=== PATIENT | male | born 1980 | race Caucasian/White ===

== ENCOUNTER 2019-04-11 09:03 | Emergency (ER) | payer MEDICAID ==
[~2019-04-11] VITALS: Ht 177.8 cm; Wt 67.2 kg
[~2019-04-11 09:03] MED LIST: DIVA-76 PO; DIVA500T39 PO
[2019-04-11 09:19] VITALS: BP 108/71
[2019-04-11] MEDS ORDERED: buprenorphine/naloxone 8mg/2mg SL tablet SL STA (09:45)
--- NOTE | 2019-04-11 10:07 | NUR ---
Patient here for medical clearance [facility] go to [facility].
== END 2019-04-11 10:10 | disposition home or self-care (01) ==
LOC: ER 09:05
DX: F11.23 Opioid dependence with withdrawal (principal); F17.200 Nicotine dependence, unspecified, uncomplicated; F15.90 Other stimulant use, unspecified, uncomplicated; F29 Unspecified psychosis not due to a substance or known physiological condition; Z86.19 Personal history of other infectious and parasitic diseases; Z79.899 Other long term (current) drug therapy; Z98.890 Other specified postprocedural states
CPT/HCPCS: 99282

== ENCOUNTER 2019-04-16 00:53 | Emergency (ER) | payer MEDICAID ==
[~2019-04-16] VITALS: Ht 177.8 cm; Wt 81.8 kg
[2019-04-16] MEDS ORDERED: chlordiazePOXIDE 25mg capsule PO ONE (03:35)
[2019-04-16] MEDS ORDERED: PROM12.512 PO (03:43)
[2019-04-16 03:58] VITALS: BP 125/65
== END 2019-04-16 04:01 | disposition home or self-care (01) ==
LOC: ER 00:53
DX: F10.10 Alcohol abuse, uncomplicated (principal); F15.90 Other stimulant use, unspecified, uncomplicated; F11.90 Opioid use, unspecified, uncomplicated; F29 Unspecified psychosis not due to a substance or known physiological condition; Z86.19 Personal history of other infectious and parasitic diseases; Z98.890 Other specified postprocedural states; Z79.899 Other long term (current) drug therapy; Y90.9 Presence of alcohol in blood, level not specified
CPT/HCPCS: 99283

== ENCOUNTER 2021-09-15 02:51 | Emergency (ER) | payer MEDICAID ==
[~2021-09-15] VITALS: Ht 177.8 cm; Wt 86.4 kg
[~2021-09-15 02:51] MED LIST changes: +PROM12.512 PO
--- NOTE | 2021-09-15 02:52 | NUR ---
When patient was asked to come into triage room patient ignored nurse and then said, "hold please", and then continued to disregard the nurse. Will attempt triage again later.
[2021-09-15 03:46] VITALS: BP 147/89
== END 2021-09-15 04:43 | disposition left against medical advice (07) ==
LOC: ER 02:51
DX: K75.9 Inflammatory liver disease, unspecified (principal); Z53.21 Procedure and treatment not carried out due to patient leaving prior to being seen by health care provider

== ENCOUNTER 2021-11-21 10:19 | Emergency (ER) | payer MEDICAID ==
[~2021-11-21] VITALS: Ht 177.8 cm; Wt 83.2 kg
[2021-11-21 10:29] VITALS: BP 128/89
[2021-11-21] MEDS ORDERED: BUPR1FIL3 SL (20:10)
== END 2021-11-21 15:08 | disposition left against medical advice (07) ==
LOC: ER 10:20
DX: R44.0 Auditory hallucinations (principal); Z53.21 Procedure and treatment not carried out due to patient leaving prior to being seen by health care provider

== ENCOUNTER 2021-11-21 18:26 | Inpatient (IN) | payer MEDICAID ==
[~2021-11-21] VITALS: Ht 177.8 cm; Wt 84.9 kg
--- NOTE | 2021-11-21 20:06 | NUR ---
pt. denies suicidal ideation when asked. pt. is making gestures and says there are a lot of people in the room. pt. believes that he has rabies do to eating a make a wish flower.
--- NOTE | 2021-11-21 20:08 | NUR ---
pt. states he has been off of his meds.
[2021-11-21] MEDS ORDERED: BUPR1FIL3 SL (20:10)
--- NOTE | 2021-11-21 22:13 | NUR ---
pt. is still having auditory hallucinations. i asked pt. if the voices are telling him to harm himself or others and he said that it's hard to explain and that he feels frantic.
[2021-11-21 22:59] LABS: HEMOGLOBIN 15.5 g/dl (14.0-17.9)
[2021-11-21 23:01] LABS: BASOPHILS % (AUTO) 0.4 % (0-1); EOSINOPHILS # (AUTO) 0.3 X10'3 (0-0.9); EOSINOPHILS % (AUTO) 5.1 % (0-6); HEMATOCRIT 44.7 % (42.0-52.0); LYMPHOCYTES # (AUTO) 1.8 X10'3 (1.1-4.8); LYMPHOCYTES % (AUTO) 26.1 % (21-51); MEAN CORPUSCULAR HGB CONC 34.6 g/dL (33.0-36.5); MEAN CORPUSCULAR VOLUME 89.5 FL (78-98); MEAN PLATELET VOLUME 7.9 FL (7.4-10.4); MONOCYTES # (AUTO) 0.8 X10'3 (0-0.9); NEUTROPHILS # (AUTO) 3.8 X10'3 (1.8-7.7); NEUTROPHILS % (AUTO) 56.4 % (42-75); PLATELET COUNT 269 X10'3 (140-440); WHITE BLOOD COUNT 6.7 X10'3 (4.5-11.0)
[2021-11-21 23:12] LABS: ALANINE AMINOTRANSFERASE 57 U/L (12-78); ALBUMIN 4.6 G/DL (3.4-5.0); ALBUMIN/GLOBULIN RATIO 1.1 (1.1-1.5); ALKALINE PHOSPHATASE 60 IU/L (46-116); ANION GAP 8 (8-16); ASPARTATE AMINO TRANSFERASE 27 U/L (10-37); BILIRUBIN,TOTAL 1.9 MG/DL (0.1-1.0); BLOOD UREA NITROGEN 8 MG/DL (7-18); BUN/CREATININE RATIO 10.3 (5.4-32.0); CALCIUM 9.2 MG/DL (8.5-10.1); CHLORIDE 104 MMOL/L (99-107); CREATININE 0.78 MG/DL (0.60-1.10); GLUCOSE 99 MG/DL (70-104); POTASSIUM 4.1 MMOL/L (3.5-5.1); SODIUM 141 MMOL/L (135-145); TOTAL CARBON DIOXIDE 28.8 MMOL/L (24-32); TOTAL PROTEIN 8.9 G/DL (6.4-8.2); eGFR > 90 ML/MIN
[2021-11-21 23:18] LABS: ETHANOL < 0.010 GM/DL (0.0-0.010)
[2021-11-21 23:44] LABS: URINE AMPHETAMINE SCREEN NEGATIVE (Neg); URINE BARBITUATE SCREEN NEGATIVE (Neg); URINE BENZODIAZEPINES SCREEN NEGATIVE (Neg); URINE CANNABINOID SCREEN NEGATIVE (Neg); URINE COCAINE SCREEN NEGATIVE (Neg); URINE METHADONE SCREEN NEGATIVE (Neg); URINE OPIATE SCREEN NEGATIVE (Neg); URINE PHENCYCLIDINE SCREEN NEGATIVE (Neg)
--- NOTE | 2021-11-22 02:00 | NUR ---
Pt is actively hallucinating, standing next to his bed with his hand outstretched and his eyes closed. He frequently talks to something that is not here, and refuses to get in his bec because he thinks someone else is in it.
[2021-11-22] MEDS ORDERED: OLANZapine 5mg rapidly disint. tablet PO ONE (02:30)
--- NOTE | 2021-11-22 02:30 | NUR ---
consulted regarding pt's hallucinations and PO zyprexa 10mg was ordered and given
--- NOTE | 2021-11-22 03:30 | NUR ---
PT is still actively hallucinating, thinking children are on his bed and babies are on the floor. PT is getting agitated, and makes statemnts like, "get off my bed, I am going to come undone if there is someone on my bed."
[2021-11-22] MEDS ORDERED: diphenhydrAMINE 25mg capsule PO ONE (03:35)
[2021-11-22] MEDS ORDERED: LORazepam 1 MG tablet PO ONE ×2 (03:35→19:40)
[2021-11-22 03:45] LABS: CLARITY,URINE TURBID (Clear); GLUCOSE, URINE NEGATIVE (Neg); KETONES,URINE 15 mg/dl (Neg); LEUKOCYTE ESTERASE ,URINE NEGATIVE (Neg); OCCULT BLOOD,URINE NEGATIVE (Neg); PROTEIN,URINE TRACE mg/dl (Neg)
--- NOTE | 2021-11-22 03:45 | NUR ---
PT given ativan 1mg and benadryl 50 mg PO. PT reassured constantly that there is no children on his bed.
[2021-11-22 03:47] LABS: COLOR,URINE DARK YELLOW (Yellow); UA COLLECTION TYPE CLN CATCH MIDSTREAM
[2021-11-22 03:48] LABS: NITRITES, URINE Negative (Neg)
[2021-11-22 03:58] LABS: AMORPHOUS URATES 4+; BACTERIA,URINE NONE SEEN /HPF (Neg); RBC,URINE NONE SEEN /HPF (0-2); SQUAMOUS EPITHELIAL CELL,UR NONE SEEN /LPF (FEW); WBC,URINE NONE SEEN /HPF (0-4)
--- NOTE | 2021-11-22 05:00 | NUR ---
PT WAKES UP FREQUENTLY THINKING THERE ARE CHILDREN IN HIS BED, PT REDIRECTABLE AND LAYS BACK DOWN.
--- NOTE | 2021-11-22 05:44 | NUR ---
PACKET FAXED TO [facility]
--- NOTE | 2021-11-22 05:58 | NUR ---
SHEREE PUT IN SAFE
--- NOTE | 2021-11-22 06:30 | NUR ---
Note alice in ED - 11/22/21 at 0714 by ADRYAN UP TO USE RESTROOM ,STEADY GAIT .NO DISTRESS NOTED .WILL CONT TO MONITOR.
--- NOTE | 2021-11-22 06:30 | NUR ---
TAKEN OVER FROM DEENA LEYVA ,PT WAS UP ALL NIGHT ,NOW PT IS SLEEPING .
--- NOTE | 2021-11-22 07:15 | NUR ---
SLEEPING IN LFT LATERAL POSITION ,RR WNL ,WILL CONT TO MONITOR.
--- NOTE | 2021-11-22 08:32 | NUR ---
PT CONT TO SLEEP ,WILL LET HIM SLEEP ,NO DISTRESS NOTED.
--- NOTE | 2021-11-22 09:05 | NUR ---
pt is wake eating his breakfast at this time.
--- NOTE | 2021-11-22 10:56 | NUR ---
spoke to cherry at [facility] ,asking if pt can go with suboxone supplies to go to facility ,i informed that the provider can give the prescription but i don't think its going to be inhand meds.as per cherry she will call me back after clarifying with facility.
--- NOTE | 2021-11-22 11:39 | NUR ---
telephone update given to aubrie rajput
--- NOTE | 2021-11-22 12:45 | NUR ---
PT CONT TO SLEEP ,NO DISTRESS NOTED .RR WNL ,WILL CONT THE MONITORING.
--- NOTE | 2021-11-22 13:49 | NUR ---
RECIEVED CALL FROM YASMINE FROM [facility] TO INFORM US THAT PT IS ACCEPTED UPSTAIR BUT DUE TO STAFF SHORTAGE THE TRANSFER WILL HAPPEN TONIGHT .
--- NOTE | 2021-11-22 15:51 | NUR ---
pt sleeping at this time RR WNL ,cont to monitor.
--- NOTE | 2021-11-22 17:30 | NUR ---
PT WOKE UP FROM SLEEP ,PT ASKED THE MANAGER FINE IF ANY CHILDREN ARE THERE ON THE BED ,CHECKED AND INFORMED THERE IS NO CHILDREN ON THE BED.GENERAL ASSESSMENT DONE ,[place] ANY SI.
--- NOTE | 2021-11-22 17:49 | NUR ---
PT REQUESTING FOR SUBOXONE ,INFORMED THE PHARMACY PER THE PHARMACY THEY HAVE NOT RECIVED ANY FAX ,REFAXED IT TO THE PHARMACY.
--- NOTE | 2021-11-22 18:02 | NUR ---
SPOKE TO DONG IN THE PHARMACY AND INFORMED THAT PT IS REQUESTING FOR SUBOXONE RGT NOW IF IT CAN BE CHANGE TO 1 TIME DOSE RGT NOW AND START THE SEBAS FOR TOMM MORNING , PER DONG PHARMACIST HE WILL FIX THE ORDER RGT NOW.
[2021-11-22] MEDS ORDERED: buprenorphine/naloxone 8MG-2MG SUBlingual film SL ONE (18:05)
--- NOTE | 2021-11-22 18:46 | NUR ---
wasted 2 film of suboxone with pharmacisit hernando see written waste documents. Addendum: 11/23/21 at 1011 by ADRYAN WASTED 2 FILM OF SUBOXONE IN THE PHARMACY WITH PHARMACIST DAMIAN .SEE WRITTEN WASTE DOCUMENTATION.
--- NOTE | 2021-11-22 19:06 | NUR ---
Pt has been walking around his bed having auditory and visual hallucinations. Pt thinks that somebody laid a baby and kids on his bed so he just walks around the bed talking to himself. Pt was given clean scrubs and went into the bathroom and cleaned up. Pt ate all of his dinner tray. Pt's area is clean. Will continue to monitor.
--- NOTE | 2021-11-22 19:25 | NUR ---
Pt up to the desk asking for 2 more suboxone patches, nicotine patch and now states that he is having alcohol withdrawls. He is walking around the overflow room talking to himself. Called ER MD for medication.
[2021-11-22] MEDS ORDERED: nicotine 21mg patch - 24 hr TD ONE (19:40)
--- NOTE | 2021-11-22 20:33 | NUR ---
Pt is in his room sleeping
--- NOTE | 2021-11-22 20:49 | NUR ---
Pt transfer [facility] by unit tech. All belongings sent with him and wallet taken out of safe also sent.
[2021-11-22] MEDS ORDERED: OLANZapine 2.5MG tablet PO ONE (21:30)
[2021-11-22] MEDS: traZODone 50mg tablet PO PRN (21:36)
[2021-11-22 22:01] VITALS: BP 99/72
--- NOTE | 2021-11-22 22:25 | NUR ---
NURSE ADMISSION NOTE Pt was admitted to [facility] on 11/22/21 at 2117, pt offered shower which he declined. 2 RN skin check completed. 5150 advisement completed, pt verbalized understanding. Gurpreet has a history of schizophrenia and has not been taking any psych medications in over a year. Pt is experiencing intense AH/VH and thinks there are children or people in his bed constantly. Pt exhibits bizarre behavior, stands with his eyes closed and hand outstretched next to his bed. He is re-directable when needed. Jareth Moralez called and consulted, 10 mg Zyprexa PO was ordered and given on admission. Medical hx: hep C positive, hx meth and heroin use, pt is on Suboxone maintenance
[2021-11-22] MEDS ORDERED: loperamide 2mg capsule PO PRN (23:30)
[2021-11-22] MEDS ORDERED: mag hydrox/Alum hydrox/simeth 30ml oral suspension PO PRN (23:30)
[2021-11-22] MEDS ORDERED: acetaminophen 325mg tablet PO PRN ×2 (23:30)
[2021-11-23 08:00] VITALS: BP 97/64
[2021-11-23] MEDS: buprenorphine/naloxone 8MG-2MG SUBlingual film SL SCH ×3 (08:57→20:51)
[2021-11-23] MEDS: nicotine 21mg patch - 24 hr TD SCH (08:57)
[2021-11-23 09:08] LABS: CHOL/HDL RATIO 2.6 (0.00-4.99); CHOLESTEROL 154 MG/DL (0-200); HDL CHOLESTEROL 60 MG/DL (35-60); LDL CHOLESTEROL 78 MG/DL (50-100); TRIGLYCERIDES 70 MG/DL (20-135)
[2021-11-23 09:11] LABS: HEMOGLOBIN A1C 4.7 % (4.5-6.2)
--- NOTE | 2021-11-23 17:11 | NUR ---
Nursing Progress Note: Gurpreet Problem: Patient is unable to provide food, clothing and fdc. Pt is confused and disorganized at times and endorses A/V halucinations. Pt has Hx of schizophrenia. Interventions: Medication administration. Maintained a safe and supportive environment, provided clear and simple instructions, provided direction and encouragement regarding performance of ADLs, monitored behaviors and maintained clear boundaries, provided positive reinforcement, and maintained Q15 minute safety checks. Response: Received Pt in bed sleeping w/o distress at the beginning of this shift. Pt woke and was cooperative with vitals and took his AM med w/o issue. Pt accepted his nicotine patch. Pt ate meals well and asked for snacks. Pt isolates and is guarded, yet will engage if needed. Pt endorses seeing halucinations of family members and children in his room and in his bed. Pt responds to halucinations verbally and appears irritated with them. Pt remains redirectable. Plan: Patient requires crisis interruption and stabilization with medication management.
[2021-11-23] MEDS: NICOTINE POLACRILEX 2 MG LOZENGE BC PRN ×2 (17:20→19:55)
[2021-11-23 20:00] VITALS: BP 103/68
[2021-11-23] MEDS ORDERED: olanzapine 10mg tablet PO ONE (20:40)
--- NOTE | 2021-11-23 20:42 | NUR ---
Patient is awake and agitated, he is extremely concerned that he is going to hurt children in the room. Jareth PHELPS contacted. Zyprexa 10 mg ordered PO now.
[2021-11-23] MEDS: traZODone 50mg tablet PO PRN (20:51)
[2021-11-23] MEDS ORDERED: ARIPIPRAZOLE 10 MG TABLET PO SCH (21:00)
--- NOTE | 2021-11-24 01:20 | NUR ---
Nursing Progress Note: Problem: Patient is unable to provide food, clothing and group home. Pt is confused and disorganized at times and endorses A/V halucinations. Pt has Hx of schizophrenia. Interventions: Medication administration. Maintained a safe and supportive environment, provided clear and simple instructions, provided direction and encouragement regarding performance of ADLs, monitored behaviors and maintained clear boundaries, provided positive reinforcement, and maintained Q15 minute safety checks. Response: Patient isolated in his room following shift change. Eye contact is indirect. Patient exhibits some anxiety but is cooperative with this comic book writer. Patient admits to audible and visual hallucinations but states they are to complex to explain. The patient later called this comic book writer to explain that he is concerned that he may hurt the children living in his room. The patient was exhibiting anxiety at the time of these statements. It was explained that what he was experiencing were hallucinations. He was told he is in a safe place and medications were being given to help his situations. The patient presents as guarded. He is cooperative and can be redirected. The patient was offered some ice cream which he ate like it was going out of style. MATTIE Giang was contacted about patients behavior and an order for Zyprexa 10 mg PO was received and given. The patient then gradually went to sleep. Plan: Patient requires crisis interruption and stabilization with medication management. He does cooperate with redirection and is medication complliant.
[2021-11-24 07:17] VITALS: BP 109/67
[2021-11-24] MEDS: NICOTINE POLACRILEX 2 MG LOZENGE BC PRN ×3 (08:38→20:19)
[2021-11-24] MEDS: buprenorphine/naloxone 8MG-2MG SUBlingual film SL SCH ×3 (08:38→20:19)
[2021-11-24] MEDS: nicotine 21mg patch - 24 hr TD SCH (08:39)
[2021-11-24] MEDS: magnesium hydroxide 30ml (MOM) UD suspension PO PRN (08:47)
--- NOTE | 2021-11-24 12:53 | NUR ---
Problem : Patient is unable to provide food, clothing and [facility]. Pt is confused and disorganized at times and endorses A/V hallucinations. Pt has Hx of schizophrenia. Interventions : Introduced self and established rapport, maintained a safe and supportive environment, ensured contract for safety, provided clear and simple instructions, encouraged independent performance of ADLs and participation on the unit, and maintained Q 15min safety checks. Response : Received pt. sleeping in bed at the beginning of the shift, he was awoken by staff and required direction in order to attend breakfast in the Group Room. Afterwards, pt. returned back to bed where he proceeded to isolate throughout much of the day. 1: was completed at bedside, pt. presents as cooperative, fatigued, guarded, and slightly irritable at times. He is A&O X2, to name and place only. When questioned regarding why he is here, pt. stated in a delusional manner, "I'm here because of rabies I think." Pt. denies any S/I or H/I, however admits to A/V/CANALES. When further questioned regarding these, pt. stated, "I see violence and I hear voices telling other voices what to do." Pt. also made delusional statements regarding his belief that his family wants to hurt him, but was unable to verbalize any reason for this belief. Pt. isolated in bed napping throughout much of the day. He later made statements that he feels his bed is "Full of babies," and requested this credit underwriter "sweep" it for him. Plan : Pt. continues to require medication adjustments and a safe and supportive environment.
[2021-11-24] MEDS: OLANZapine 2.5MG tablet PO PRN (17:38)
[2021-11-24 20:00] VITALS: BP 112/84
[2021-11-24] MEDS: traZODone 50mg tablet PO PRN (20:19)
[2021-11-24] MEDS: olanzapine 10mg tablet PO SCH (20:19)
--- NOTE | 2021-11-25 06:27 | NUR ---
Nursing Progress Note: Problem: Patient is unable to provide food, clothing and snf. Pt is confused and disorganized at times and endorses A/V hallucinations. Pt has Hx of schizophrenia. Interventions: Medication administration. Maintained a safe and supportive environment, provided clear and simple instructions, provided direction and encouragement regarding performance of ADLs, monitored behaviors and maintained clear boundaries, provided positive reinforcement, and maintained Q15 minute safety checks. Response: Patient isolated in his room following shift change. Eye contact is indirect. Patient exhibits some anxiety but is cooperative with this service writer. Patient admits to audible and visual hallucinations but states they are to complex to explain. The patient later called this service writer to explain that he is concerned that he may hurt the children living in his room. The patient was exhibiting anxiety at the time of these statements. It was explained that what he was experiencing were hallucinations. He was told he is in a safe place and medications were being given to help his situations. The patient presents as guarded. He is cooperative and can be redirected. Minor improvements in patients condition. He continues to isolate. His visual hallucinations of children being in his bed are more acute. Plan: Patient requires crisis interruption and stabilization with medication management. He does cooperate with redirection and is medication complliant.
[2021-11-25 07:46] VITALS: BP 104/71
[2021-11-25] MEDS: buprenorphine/naloxone 8MG-2MG SUBlingual film SL SCH ×3 (08:33→20:41)
[2021-11-25] MEDS: nicotine 21mg patch - 24 hr TD SCH (08:33)
[2021-11-25] MEDS: NICOTINE POLACRILEX 2 MG LOZENGE BC PRN ×2 (12:53→15:54)
--- NOTE | 2021-11-25 14:10 | NUR ---
Nursing Progress Note: Problem : Patient is unable to provide food, clothing and snf. Pt is confused and disorganized at times and endorses A/V hallucinations. Pt has Hx of schizophrenia. Interventions : Maintained a safe and supportive environment, ensured contract for safety, provided clear and simple instructions, attempted to orient to reality, encouraged independent performance of ADLs and participation on the unit, and maintained Q 15min safety checks. Response : Received pt. sleeping in bed at the beginning of the shift, he was awoken by staff and again required direction in order to attend breakfast in the Group Room. Afterwards, pt. returned back to his room where he continued to isolate throughout much of the day in what appeared to be a paranoid manner. 1:1 was completed at bedside, pt. continues to endorse A/V/CANALES which he does not elaborate on. He remains guarded with conversation. Pt. then makes the paranoid delusional statement, "I see babies everywhere on my bed and they just pop up. I don't know what to do!" This residential mortgage underwriter again attempted to orient pt. back to reality and he was able to lay down in his bed and returned back to sleep. Pt. was observed to be more present on the unit this shift, at times standing in the hallway gesturing to an unknown entity. He appears to be internally preoccupied and is not observed to be interacting with his peers, will continue to monitor closely. Plan : Pt. continues to require medication adjustments and a safe and supportive environment. Per MATTIE Barlow he does not have a viable plan for discharge at this time.
[2021-11-25] MEDS ORDERED: LORazepam 1 MG tablet PO ONE (15:50)
[2021-11-25 19:00] VITALS: BP 98/62
[2021-11-25] MEDS: traZODone 50mg tablet PO PRN (20:41)
[2021-11-25] MEDS: olanzapine 10mg tablet PO SCH (20:41)
--- NOTE | 2021-11-26 05:20 | NUR ---
Nursing Progress Note: Problem: Patient is unable to provide food, clothing and [facility]. Pt is confused and disorganized at times and endorses A/V hallucinations. Pt has Hx of schizophrenia. Interventions: Medication administration. Maintained a safe and supportive environment, provided clear and simple instructions, provided direction and encouragement regarding performance of ADLs, monitored behaviors and maintained clear boundaries, provided positive reinforcement, and maintained Q15 minute safety checks. Response: The patient continues to self isolate in his room this shift. He continues to hear chaotic voices, he is very concerned about the children on his bed, they are quite bothersome and he does not want to hurt them. Patient is medication compliant. Patients Habitrol patch was removed. Plan: Patient requires crisis interruption and stabilization with medication management. He does cooperate with redirection and is medication compliant.
--- NOTE | 2021-11-26 07:26 | NUR ---
Initial: Pt admitted w/ schizophrenia per EMR. Currently on Regular diet w/ mostly 100% intake of meals meeting needs at this time. No BM documented this admit, receiving PRN MoM. No nutrition intervention implemented at this time, will continue to monitor. Recs: 1. Continue Regular diet as tolerated 2. Bowel care PRN 3. Weekly wts Addendum: 11/26/21 at [address] Amended: Links added.
[2021-11-26 08:00] VITALS: BP 102/62
[2021-11-26] MEDS: buprenorphine/naloxone 8MG-2MG SUBlingual film SL SCH ×3 (08:13→20:25)
[2021-11-26] MEDS: nicotine 21mg patch - 24 hr TD SCH (08:16)
[2021-11-26] MEDS: NICOTINE POLACRILEX 2 MG LOZENGE BC PRN ×4 (09:02→19:06)
[2021-11-26] MEDS: OLANZapine 2.5MG tablet PO PRN ×2 (12:43→19:21)
--- NOTE | 2021-11-26 17:00 | NUR ---
Nursing Progress Note: Problem: Patient is unable to provide food, clothing and fpc. Pt is confused and disorganized at times and endorses A/V hallucinations. Pt has History of Schizophrenia. Interventions: Received patient while he was sleeping in bed. Patient woke up at approximately 0735 and went to the Community Room for breakfast. Patient was served his breakfast tray at approximately 0755, then was observed sitting in the back of the dining room in the chairs, moving from one chair to another chair the entire time he was eating his breakfast and repeated this same at lunchtime. Patient would only sit still a few minutes then would get up with his tray and move to another chair, all along the back row of chairs in the dining room. Patient had a flat affect at the time, and could have been responding to internal stimuli. At approximately 1230, the patient stated I feel agitated, like Sharri done something wrong. Informed the patient that he had not done anything wrong, and if he was feeling agitated I could get him some Zyprexa that the had ordered for him. Patient responded Yes, I want the Zyprexa. Patient took his medications and was cooperative. Patient also showed me the bottom of his feet which he informs he was homeless and not wearing shoes. Bottom of bilateral feet appear calloused and left Racquel a note requesting to order Eucerin if okay with her. Response: Patient is alert & oriented x2. Could not remember last bowel movement. Patients only behavior today was moving back and forth in the chairs in the back row of the Community Room. Patient received Zyprexa x1 at 1230, and after lunch went to his room and retreated to taking a nap. Patient was awake at snack time at 1500. Plan: Patient requires crisis interruption and stabilization with medication management. He does cooperate with redirection and is medication compliant.
[2021-11-26 19:45] VITALS: BP 110/77
[2021-11-26] MEDS: traZODone 50mg tablet PO PRN (20:26)
[2021-11-26] MEDS ORDERED: olanzapine 10mg tablet PO SCH (21:00)
--- NOTE | 2021-11-27 03:02 | NUR ---
Nursing Progress Note: Gurpreet Problem: Patient is unable to provide food, clothing and longterm. Pt is confused and disorganized at times and endorses A/V hallucinations. Pt has History of Schizophrenia. Interventions: Medication administration. Maintained a safe and supportive environment, provided clear and simple instructions, provided direction and encouragement regarding performance of ADLs, monitored behaviors and maintained clear boundaries, provided positive reinforcement, and maintained Q15 minute safety checks. Response: Patient sitting up in bed at change of shift. Pt cooperative and paranoid. Pt states +AH and his voices are commands with threats. He also endorses +VH and sees things that I shouldnt be seeing. Pt states his anxiety is 10/10 5MG Zyprexa given with good effect. Patient showered this evening, up for snacks and took all HS medications. Before lying in bed pt states is there anything on top of my bed? Is there anything behind it? Plan: Patient requires crisis interruption and stabilization with medication management. He does cooperate with redirection and is medication compliant.
[2021-11-27 08:00] VITALS: BP 121/63
[2021-11-27] MEDS: nicotine 21mg patch - 24 hr TD SCH (08:19)
[2021-11-27] MEDS: buprenorphine/naloxone 8MG-2MG SUBlingual film SL SCH ×3 (08:19→19:49)
[2021-11-27] MEDS: NICOTINE POLACRILEX 2 MG LOZENGE BC PRN ×3 (10:27→18:17)
[2021-11-27] MEDS ORDERED: olanzapine 10mg tablet PO SCH (12:30)
[2021-11-27] MEDS ORDERED: OLANZAPINE 5 MG TABLET PO PRN (12:50)
[2021-11-27] MEDS: OLANZapine 2.5MG tablet PO SCH (13:01)
--- NOTE | 2021-11-27 13:45 | NUR ---
5250 for GD upheld
--- NOTE | 2021-11-27 14:51 | NUR ---
CM-Continuity of Care 5180 upheld. Confirmed w/[facility] that pt can rt there upon d/c. Consuelo Post, BILL SORTER Addendum: 11/27/21 at 1452 by Consuelo Post SS Amended: Links added.
--- NOTE | 2021-11-27 18:10 | NUR ---
Nursing Progress Note: Problem: Patient is unable to provide food, clothing and prison. Pt is confused and disorganized at times and endorses A/V hallucinations. Pt has History of Schizophrenia. Interventions: Received patient when he was sleeping. Patient arrived to the Community Room at approximately 0745 and took his medications right after eating breakfast. Patient appears like he is hearing voices and reports he is having auditory hallucinations and I keep seeing some children in my bed, and I dont know what to do about them. Patients mentation has been clearer today than the previous day. Patient took his medications without hesitation. Patient received Nicotine Lozenges x2 throughout the daytime. Patient requested a pair of clean socks at approximately 1345, then approximately 30 minutes later the patient asked for another pair of socks. Asked patient why he required another pair of socks, and the patient stated I got really mad when I lost my court case. Response: Patient continues with a flat affect and appears to be hearing voices. Patient voiced frustration after losing his court case today, and after discussion with this Oven Heater Helper, he was able to calm down and rested until dinner. Plan: Patient requires crisis interruption and stabilization with medication management. He does cooperate with redirection and is medication compliant.
[2021-11-27 19:37] VITALS: BP 108/70
[2021-11-27] MEDS: OLANZAPINE 5 MG TABLET PO SCH (19:49)
[2021-11-27] MEDS ORDERED: hydrOXYzine 25 MG tablet PO ONE (20:25)
[2021-11-27] MEDS ORDERED: hydrOXYzine 25 MG tablet PO PRN (20:30)
--- NOTE | 2021-11-28 01:36 | NUR ---
Nursing Progress Note: Gurpreet Problem: Patient is unable to provide food, clothing and alf. Pt is confused and disorganized at times and endorses A/V hallucinations. Pt has History of Schizophrenia. Interventions: Medication administration. Maintained a safe and supportive environment, provided clear and simple instructions, provided direction and encouragement regarding performance of ADLs, monitored behaviors and maintained clear boundaries, provided positive reinforcement, and maintained Q15 minute safety checks. Response: Pt standing in the hallway at change of shift. Pt states he feels like someone is always robbing him of something. He has +AH always and the voices are threatening to him. Pt has +VH as if he is sitting on something when he is in bed. Pt c/o of anxiety 11/29, provider notified and 25MG of atatax ordered and given. After administered of atarax pt states will you make sure it is safe for me to lie down because I dont want to get into any trouble. Pt doesnt interact with peers or staff and isolates, responding to IS. Plan: Patient requires crisis interruption and stabilization with medication management. He does cooperate with redirection and is medication compliant.
[2021-11-28] MEDS: OLANZapine 2.5MG tablet PO SCH ×2 (07:58→12:43)
[2021-11-28] MEDS: buprenorphine/naloxone 8MG-2MG SUBlingual film SL SCH ×3 (07:58→20:12)
[2021-11-28] MEDS: nicotine 21mg patch - 24 hr TD SCH (07:59)
[2021-11-28 08:00] VITALS: BP 101/61
[2021-11-28] MEDS: NICOTINE POLACRILEX 2 MG LOZENGE BC PRN ×2 (12:43→20:19)
--- NOTE | 2021-11-28 16:21 | NUR ---
Nursing Progress Note: Problem: Patient is unable to provide food, clothing and fpc. Pt is confused and disorganized at times and endorses A/V hallucinations. Pt has History of Schizophrenia. Interventions: Provided therapeutic communication with active listening. Provided warm blankets as pt is cold most of the day. Provided medication administration/education/monitoring. Encouraged pt to participate in today's group. Prompted pt to get up for meals and snacks. Response: Pt endorses A/H. He denies SI. He is upset over "becoming delusional in my house and now I'm going to loose my housing." Pt took his medications as prescribed. Plan: Patient requires crisis interruption and stabilization with medication management. He does cooperate with redirection and is medication compliant.
[2021-11-28 20:00] VITALS: BP 98/59
[2021-11-28] MEDS: OLANZAPINE 5 MG TABLET PO SCH (20:12)
[2021-11-28] MEDS: traZODone 50mg tablet PO PRN ×2 (20:12→23:58)
--- NOTE | 2021-11-29 00:16 | NUR ---
Nursing Progress Note: Gurpreet Problem: Patient is unable to provide food, clothing and halfway. Pt is confused and disorganized at times and endorses A/V hallucinations. Pt has History of Schizophrenia. Interventions: Provided therapeutic communication with active listening. Provided warm blankets as pt is cold most of the day. Provided medication administration/education/monitoring. Encouraged pt to participate in today's group. Prompted pt to get up for meals and snacks. Response: Pt endorses AH states one side is commanding and the other side is threatening. He states he has delusions of seeing babies on his bed and people lying on his bed. Pt had RN check the bed to make sure it was clear for him to lie in. Pt denies anxiety, took all HS medications, requested nicotine lozenge and then went to bed. Pt up around midnight c/o cant fall asleep, repeat trazadone given. Plan: Patient requires crisis interruption and stabilization with medication management. He does cooperate with redirection and is medication compliant.
[2021-11-29 08:00] VITALS: BP 107/57
[2021-11-29] MEDS: OLANZapine 2.5MG tablet PO SCH ×2 (08:27→12:21)
[2021-11-29] MEDS: buprenorphine/naloxone 8MG-2MG SUBlingual film SL SCH ×3 (08:28→20:23)
[2021-11-29] MEDS: nicotine 21mg patch - 24 hr TD SCH (08:28)
[2021-11-29] MEDS: magnesium hydroxide 30ml (MOM) UD suspension PO PRN (11:30)
[2021-11-29] MEDS: NICOTINE POLACRILEX 2 MG LOZENGE BC PRN ×2 (12:23→17:32)
--- NOTE | 2021-11-29 15:53 | NUR ---
Nursing Progress Note: Gurpreet Problem: Patient is unable to provide food, clothing and alf. Pt is confused and disorganized at times and endorses A/V hallucinations. Pt has History of Schizophrenia. Interventions: Provided therapeutic communication with active listening. Provided medication administration/education/monitoring. Encouraged pt to participate in today's group. Prompted pt to get up for meals and snacks. Response: 1:1 done at bedside. Claims he slept good once his sleeping medications kicked in. Pt continues to endorse A/VH and states these people keep dropping children off on my bed. He appears to be preoccupied, staring off as if seeing things during conversation. He spent the majority of the shift in his bedroom isolating himself. He denies SI/HI. Pt took his medications as prescribed. The medical doctor assessed patients feet for c/o pain, new order for ketoconazole for treatment of fungus. Plan: Patient requires crisis interruption and stabilization with medication management. He does cooperate with redirection and is medication compliant.
[2021-11-29 19:56] VITALS: BP 97/62
[2021-11-29] MEDS ORDERED: docusate sod 100mg capsule PO PRN (20:00)
[2021-11-29] MEDS: traZODone 50mg tablet PO PRN (20:23)
[2021-11-29] MEDS: OLANZAPINE 5 MG TABLET PO SCH (20:23)
[2021-11-29] MEDS: ketoconazole 2% cream 15gm TP SCH (20:30)
--- NOTE | 2021-11-30 01:06 | NUR ---
Nursing Progress Note: Gurpreet Problem: Patient is unable to provide food, clothing and long term. Pt is confused and disorganized at times and endorses A/V hallucinations. Pt has History of Schizophrenia. Interventions: Provided therapeutic communication with active listening. Provided medication administration/education/monitoring. Encouraged pt to participate in today's group. Prompted pt to get up for meals and snacks. Response: Patient in bed asleep at shift change. Pt 1;1, pt reports hearing command and threatening voices to harm himself. The pt also reports seeing babies in bed where he is afraid to move in fear that he will crush them. The patient was offered a book for distraction which the patient accepted. the pt complained about constipation, an order was made by the provider for Colace BID. The pt refused evening snack. The pt took evening meds w/o complications. Plan: Patient requires crisis interruption and stabilization with medication management. He does cooperate with redirection and is medication compliant.
[2021-11-30 08:07] VITALS: BP 109/65
[2021-11-30] MEDS: nicotine 21mg patch - 24 hr TD SCH (08:23)
[2021-11-30] MEDS: buprenorphine/naloxone 8MG-2MG SUBlingual film SL SCH ×3 (08:23→19:51)
[2021-11-30] MEDS: ketoconazole 2% cream 15gm TP SCH ×2 (08:23→19:52)
[2021-11-30] MEDS: OLANZapine 2.5MG tablet PO SCH ×2 (08:23→12:48)
[2021-11-30] MEDS: magnesium hydroxide 30ml (MOM) UD suspension PO PRN (08:31)
[2021-11-30] MEDS: NICOTINE POLACRILEX 2 MG LOZENGE BC PRN ×3 (09:17→21:08)
--- NOTE | 2021-11-30 12:14 | NUR ---
CM-pre-dcp presenting Issues: Pt's 3250 will on 12/09/21. Pt continues to experience significant CAH. It is unclear if pt has established outpatient mental healthcare with any provider yet. Interventions: Clinician staffed case w/MDT to facilitate pt's access to eval for possible RUBIO interventions. Per MDT, attending physician will evaluate for possible RUBIO interventions. Clinician met w/pt & engaged him in pre-dcp activities, per session pt reported that he's been receiving Suboxone treatment via [facility] & provided verbal consent for clinician to contact [facility] to confirm & coordinate aftercare plan. Clinician had t/c with [facility] and they confirmed that pt is receiving MAT services & Suboxone via [facility]. Plan: When pt is ready for d/c aftercare needs to be coordinated w/[facility]. Consuelo Post LCSW Addendum: 11/30/21 at 1234 by Consuelo Post SS Amended: Links added.
--- NOTE | 2021-11-30 12:52 | NUR ---
MOM effective, patient had a large BM. When asked how big patient stated "too much."
[2021-11-30] MEDS ORDERED: asenapine 5mg TAB.SUBL SL ONE (14:30)
--- NOTE | 2021-11-30 15:59 | NUR ---
Nursing Progress Note: Problem: Patient is unable to provide food, clothing and senior living. Pt is confused and disorganized at times and endorses A/V hallucinations. Pt has History of Schizophrenia. Interventions: Provided therapeutic communication with active listening. Provided medication administration/education/monitoring. Encouraged pt to participate in today's group. Prompted pt to get up for meals and snacks. Response: Pt asleep at change of shift, awoken for breakfast. 1:1 done at bedside. Pt. continues to appear preoccupied with internal stimuli and endorses VH involving young people. Denies S/HI. Treatment to feet completed, pt. states they are feeling better. Medications administered with no issues. MOM administered with effective results, pt had a large BM. New order started of Saphris 5mg BID. Pt spent the majority of the shift isolating in his bedroom. Plan: Patient requires crisis interruption and stabilization with medication management. He does cooperate with redirection and is medication compliant.
[2021-11-30] MEDS: OLANZAPINE 5 MG TABLET PO PRN (18:58)
[2021-11-30 19:00] VITALS: BP 99/67
[2021-11-30] MEDS: OLANZAPINE 5 MG TABLET PO SCH (19:51)
[2021-11-30] MEDS: asenapine 5mg TAB.SUBL SL SCH (19:51)
[2021-11-30] MEDS: traZODone 50mg tablet PO PRN (19:52)
--- NOTE | 2021-11-30 22:54 | NUR ---
Nursing Progress Note: Problem: Patient is unable to provide food, clothing and [facility]. Pt is confused and disorganized at times and endorses A/V hallucinations. Pt has History of Schizophrenia. Interventions: Provided therapeutic communication with active listening. Provided medication administration/education/monitoring. Encouraged pt to participate in today's group. Prompted pt to get up for meals and snacks. Response: Patient in room sleeping at shift change. Pt 1;1, pt reports +A/V/H. Patient denies SI/HI. Patient appropriate and polite, speaks softly with minimal conversation. Patient asked for anxiety medication, pt seemed to be responding to internal stimuli as he had a pained looking expression. Patient given Zyprexa 10mg, worked with good effect pt able to refocus and eat snack in community room with cohorts. patient took evening meds w/o complications. patient went to sleep shortly after. Plan: Patient requires crisis interruption and stabilization with medication management. He does cooperate with redirection and is medication compliant.
[2021-12-01] MEDS: asenapine 5mg TAB.SUBL SL SCH ×2 (07:47→20:40)
[2021-12-01] MEDS: buprenorphine/naloxone 8MG-2MG SUBlingual film SL SCH ×3 (07:48→20:38)
[2021-12-01] MEDS: nicotine 21mg patch - 24 hr TD SCH (07:48)
[2021-12-01] MEDS: ketoconazole 2% cream 15gm TP SCH ×2 (07:48→20:38)
[2021-12-01 08:00] VITALS: BP 99/43
[2021-12-01] MEDS: NICOTINE POLACRILEX 2 MG LOZENGE BC PRN ×4 (08:03→17:19)
[2021-12-01] MEDS: hydrOXYzine 25 MG tablet PO PRN ×2 (14:22→19:10)
--- NOTE | 2021-12-01 16:53 | NUR ---
Nursing Progress Note: Gurpreet Problem: Patient is unable to provide food, clothing and prison. Pt is confused and disorganized at times and endorses A/V hallucinations. Pt has History of Schizophrenia. Intervention: Medication given as ordered. Provided with a safe and therapeutic environment, clear communication, active listening and positive encouragement. Response: Patient is resting quietly in bed at the start of the shift. Cooperative with medications and assessment. PRN Nicotine given per patient request. Patient complains of anxiety in the afternoon. PRN Atarax is given with good effect. Patient continues to endorse auditory/ visual hallucinations. States he sees children in his bed. Patient takes a shower. Appears paranoid and asks staff to check the shower before he goes in. Appears guarded and isolates to his room most of the shift. Plan: Patient continues to require crisis interruption and stabilization with medication management and monitoring in a safe and therapeutic environment.
[2021-12-01 19:00] VITALS: BP 108/72
--- NOTE | 2021-12-01 19:20 | NUR ---
Patient complains of increased anxiety. Atarax given by a fellow RN along with a nicotine kate. Nicotine patch removed by this mortgage or loan underwriter.
--- NOTE | 2021-12-01 19:30 | NUR ---
Nursing Progress Note: Problem: Patient is unable to provide food, clothing and halfway. Pt is confused and disorganized at times and endorses A/V hallucinations. Pt has History of Schizophrenia. Interventions: Provided therapeutic communication with active listening. Provided medication administration/education/monitoring. Encouraged pt to participate in today's group. Prompted pt to get up for meals and snacks. Response: Patient was self isolating in room at shift change. He reported to have eaten his meals. The patient was given Atarax for anxiety along with a nicotine lozenge. Patients nicotine patch was removed. The patient denies S/I or H/I. He looks to be responding to internal stimuli at times. The patient endorses audible and visual stimuli. Unknown type descriptions of audible, visual is primarily children on his bed and being around him. Patient also exhibits paranoia. He is medication compliant. Plan: Patient requires crisis interruption and stabilization with medication management. He does cooperate with redirection and is medication compliant.
[2021-12-01] MEDS: OLANZAPINE 5 MG TABLET PO SCH (20:39)
[2021-12-02] MEDS: NICOTINE POLACRILEX 2 MG LOZENGE BC PRN ×5 (07:51→20:54)
[2021-12-02] MEDS: buprenorphine/naloxone 8MG-2MG SUBlingual film SL SCH ×3 (07:51→20:54)
[2021-12-02] MEDS: nicotine 21mg patch - 24 hr TD SCH (07:51)
[2021-12-02] MEDS: asenapine 5mg TAB.SUBL SL SCH ×2 (07:51→20:00)
[2021-12-02 08:00] VITALS: BP 97/55
[2021-12-02] MEDS: ketoconazole 2% cream 15gm TP SCH ×2 (08:15→20:54)
--- NOTE | 2021-12-02 16:17 | NUR ---
Nursing Progress Note: Gurpreet Problem: Patient is unable to provide food, clothing and senior care. Pt is confused and disorganized at times and endorses A/V hallucinations. Pt has History of Schizophrenia. Intervention: Medication given as ordered. Provided with a safe and therapeutic environment, clear communication, active listening and positive encouragement. Response: Patient is resting quietly in bed at the start of the shift. Cooperative with medications and assessment. Requests PRN nicotine several times during the day. Endorses auditory/ visual hallucinations. States, Just someone put kids in my bed. Its a delusion. Denies any SI/ HI at this time. Patient isolates to his room most of the day. Noted watching TV for a short time in the community room. Plan: Patient continues to require crisis interruption and stabilization with medication management and monitoring in a safe and therapeutic environment.
[2021-12-02] MEDS: hydrOXYzine 25 MG tablet PO PRN (18:53)
[2021-12-02 19:00] VITALS: BP 109/73
--- NOTE | 2021-12-02 19:00 | NUR ---
Patient was pacing halls following shift change. Interview at observation room. The patient is well oriented, cooperative, he is anxious. The patient requests nicotine and atarax. He also requests a shower when available. The patient complains of feeling "a pressure sensation, all over my body." He states he is concerned about his next placement and the possibility he may have lost his job. He is concerned about his next transition in life. Patient states he is experiencing "negative and positive audible hallucinations." He reports he sees "shadows," in and out of his visual field. This assembly instructions writer removed patients nicotine patch. PRN nicotine lozenges will be used as needed until shift change. The patient is mildly depressed. He denies S/I or H/I. His last BM was yesterday.
[2021-12-02] MEDS: OLANZAPINE 5 MG TABLET PO SCH (20:54)
[2021-12-02] MEDS: traZODone 50mg tablet PO PRN (21:16)
--- NOTE | 2021-12-03 01:56 | NUR ---
Nursing Progress Note: Problem: Patient is unable to provide food, clothing and fdc. Pt is confused and disorganized at times and endorses A/V hallucinations. Pt has History of Schizophrenia. Interventions: Provided therapeutic communication with active listening. Provided medication administration/education/monitoring. Encouraged pt to participate in today's group. Prompted pt to get up for meals and snacks. Response: Patient remains delusional but cooperative. No S/I or H/I. Patient continues to endorse audible and visual hallucinations. Patient is cooperative with medications. No acute changes from previous shift. Plan: Patient requires crisis interruption and stabilization with medication management. He does cooperate with redirection and is medication compliant.
[2021-12-03 08:00] VITALS: BP 99/55
[2021-12-03] MEDS: ketoconazole 2% cream 15gm TP SCH ×2 (08:03→20:28)
[2021-12-03] MEDS: nicotine 21mg patch - 24 hr TD SCH (08:03)
[2021-12-03] MEDS: buprenorphine/naloxone 8MG-2MG SUBlingual film SL SCH ×3 (08:03→20:26)
[2021-12-03] MEDS: asenapine 5mg TAB.SUBL SL SCH ×2 (08:03→20:25)
[2021-12-03] MEDS: NICOTINE POLACRILEX 2 MG LOZENGE BC PRN ×3 (08:03→19:05)
--- NOTE | 2021-12-03 17:06 | NUR ---
Nursing Progress Note: Gurpreet Problem: Patient is unable to provide food, clothing and alf. Pt is confused and disorganized at times and endorses A/V hallucinations. Pt has History of Schizophrenia. Intervention: Medication given as ordered. Provided with a safe and therapeutic environment, clear communication, active listening and positive encouragement. Response: Patient is resting quietly in bed at the start of the shift. Cooperative with medications and assessment. Continues to endorse auditory/ visual hallucinations, but they do not appear to be as troubling. Patient states he sees babies in his bed but verbalizes that he knows they are delusions. Isolates to his room for much of the day. Requests PRN Nicotine lozenge. Frequently requests snacks and has to be reminded of snack times. Denies any suicidal/ homicidal ideation at this time. Plan: Patient continues to require crisis interruption and stabilization with medication management and monitoring in a safe and therapeutic environment.
[2021-12-03] MEDS: OLANZAPINE 5 MG TABLET PO PRN (19:05)
[2021-12-03 19:47] VITALS: BP 106/67
[2021-12-03] MEDS: traZODone 50mg tablet PO PRN (20:26)
[2021-12-03] MEDS: OLANZAPINE 5 MG TABLET PO SCH (20:26)
[2021-12-03] MEDS: hydrOXYzine 25 MG tablet PO PRN (20:26)
--- NOTE | 2021-12-04 04:55 | NUR ---
Nursing Progress Note: Problem: Patient is unable to provide food, clothing and skilled nursing. Pt is confused and disorganized at times and endorses A/V hallucinations. Pt has History of Schizophrenia. Intervention: Medication given as ordered. Provided with a safe and therapeutic environment, clear communication, active listening and positive encouragement. Response: Patient is pleasant and cooperative with care; compliant with medication. PRN Nicotine lozenge, Atarax and Trazodone provided. He denies SI/HI, continues to endorse A/VH; patient does appears internally preoccupied. While standing in the hallway outside of the observation room he was observed staring at the opposite wall and then jumped into the doorway of [facility]. Patient was easily redirected verbally. No apparent delusions expressed. He participate in HS snack prior to bed; observed sleeping and does not appear to be having difficulty. Plan: Patient continues to require crisis interruption and stabilization with medication management and monitoring in a safe and therapeutic environment.
[2021-12-04 08:00] VITALS: BP 106/59
[2021-12-04] MEDS: buprenorphine/naloxone 8MG-2MG SUBlingual film SL SCH ×3 (08:00→19:57)
[2021-12-04] MEDS: asenapine 5mg TAB.SUBL SL SCH ×3 (08:00→21:00)
[2021-12-04] MEDS: nicotine 21mg patch - 24 hr TD SCH (08:04)
[2021-12-04] MEDS: ketoconazole 2% cream 15gm TP SCH ×2 (08:05→20:00)
[2021-12-04] MEDS: NICOTINE POLACRILEX 2 MG LOZENGE BC PRN ×3 (13:10→21:11)
[2021-12-04] MEDS: hydrOXYzine 25 MG tablet PO PRN (14:14)
--- NOTE | 2021-12-04 17:54 | NUR ---
Nursing Progress Note Problem: Patient is unable to provide food, clothing and fci. Pt is confused and disorganized at times and endorses A/V hallucinations. Pt has History of Schizophrenia. Intervention: Medication given as ordered. Provided with a safe and therapeutic environment, clear communication, active listening and positive encouragement. Response: Received Pt in bed sleeping w/o distress at the beginning of this shift. Pt woke and cooperative with vitals and AM meds. Pt ate meals well. Pt spoke on phone and made plans for discharge at rehab. Pt became anxious after phone calls and requested meds. Pt given Atarax with good effect. Pt was heard speaking clearly and linear on phone for approx.. 45 mins. Pt resting in bed now. Isolated to room most of day. Pt endorses A/VHs, which have not changed, yet seem to bother him less. Plan: Patient continues to require crisis interruption and stabilization with medication management and monitoring in a safe and therapeutic environment.
[2021-12-04] MEDS: OLANZAPINE 5 MG TABLET PO PRN (19:02)
[2021-12-04 19:43] VITALS: BP 112/78
[2021-12-04] MEDS: OLANZAPINE 5 MG TABLET PO SCH ×2 (19:57→21:00)
[2021-12-04] MEDS: traZODone 50mg tablet PO PRN ×2 (20:00→21:10)
--- NOTE | 2021-12-05 05:30 | NUR ---
Nursing Progress Note: Problem: Patient is unable to provide food, clothing and nursing home. Pt is confused and disorganized at times and endorses A/V hallucinations. Pt has History of Schizophrenia. Intervention: Medication given as ordered. Provided with a safe and therapeutic environment, clear communication, active listening and positive encouragement. Response: Patient is pleasant and cooperative with care; compliant with medication. PRN Atarax, Trazodone, Zyprexa and Nicotine lozenges provided. Nicotine patch removed. He continues to endorse A/VH; denies SI, HI. Patient participated in HS snack; he is self isolative and observed standing/sitting in the hallway prior to bed. Patient is observed sleeping and does not appear to be having difficulty. Plan: Patient continues to require crisis interruption and stabilization with medication management and monitoring in a safe and therapeutic environment.
--- NOTE | 2021-12-05 07:38 | NUR ---
Reassessment: Pt continues on Regular diet w/ mostly 100% intake of meals meeting needs at this time. LBM 12/03 has received PRN bowel care. No nutrition intervention implemented at this time, will continue to monitor. Recs: 1. Continue Regular diet as tolerated 2. Bowel care PRN 3. Weekly wts Addendum: 12/05/21 at [address] Amended: Links added.
[2021-12-05 08:00] VITALS: BP 96/57
[2021-12-05] MEDS: buprenorphine/naloxone 8MG-2MG SUBlingual film SL SCH ×3 (08:42→20:12)
[2021-12-05] MEDS: nicotine 21mg patch - 24 hr TD SCH (08:43)
[2021-12-05] MEDS: asenapine 5mg TAB.SUBL SL SCH ×2 (08:43→20:12)
[2021-12-05] MEDS: ketoconazole 2% cream 15gm TP SCH ×2 (08:44→20:00)
--- NOTE | 2021-12-05 10:26 | NUR ---
Pt. attended group today. We talked about Boundaries, the different kinds and how to communicate our boundaries to others. Each pt. did a written activity to help them identify a person/situation they struggle to set boundaries in. He was in and out of the group. When he was in the group he was guarded and declined sharing anything. He appeared sleepy and not that interested in the group. His thought content and thought process was WNL. Aster Nicole LCSW
[2021-12-05] MEDS: NICOTINE POLACRILEX 2 MG LOZENGE BC PRN ×3 (12:57→19:21)
[2021-12-05] MEDS: OLANZAPINE 5 MG TABLET PO PRN (12:57)
--- NOTE | 2021-12-05 14:49 | NUR ---
CASE MANAGEMENT This V Belt Finisher spoke with Anatoly from [facility] who reported that they are happy to have Pt. back. Pt. is interested in looking at rehabs, he is working with [facility] to see what is available to him. Will continue to follow. Aster Nicole, VP ACCOUNT DIRECTOR
--- NOTE | 2021-12-05 16:06 | NUR ---
Nursing Progress Note Problem: Patient is unable to provide food, clothing and fpc. Pt is confused and disorganized at times and endorses A/V hallucinations. Pt has History of Schizophrenia. Intervention: Provided 1:1 assessment with therapeutic communication and active listening allowing the patient to express feelings and thoughts. Provided medication administration/education/monitoring. Provided a safe and supportive environment. Provided reality orientation as needed. Monitored q 15 min safety checks. Response: Pt slept until meal time for both breakfast and lunch. He is compliant with his medications. He reports medications are helping "but not all the time." He c/o of "angry and loud voices" so was given PRN Zyprexa prior to lunch. Pt up waling around and looking at pictures in the halls after 3pm snack. Pt is thankful he is able to go back to his home when he leaves here. Plan:Patient continues to require crisis interruption and stabilization with medication management and monitoring in a safe and therapeutic environment.
[2021-12-05] MEDS: hydrOXYzine 25 MG tablet PO PRN (17:15)
[2021-12-05 19:37] VITALS: BP 102/71
[2021-12-05] MEDS: OLANZAPINE 5 MG TABLET PO SCH (20:12)
[2021-12-05] MEDS: traZODone 50mg tablet PO PRN (20:12)
--- NOTE | 2021-12-06 05:05 | NUR ---
Nursing Progress Note: Problem: Patient is unable to provide food, clothing and halfway. Pt is confused and disorganized at times and endorses A/V hallucinations. Pt has History of Schizophrenia. Intervention: Medication given as ordered. Provided with a safe and therapeutic environment, clear communication, active listening and positive encouragement. Response: Patient is pleasant and cooperative with care; compliant with medication. PRN Trazodone and Nicotine lozenge provided. Nicotine patch removed. Patient continues to report A/VH; denies SI/HI. Patient stands in one spot out in the hallway and stares the majority of the time awake. He participated in HS snack prior to bed; observed sleeping and does not appear to be having difficulty. Plan: Patient continues to require crisis interruption and stabilization with medication management and monitoring in a safe and therapeutic environment.
[2021-12-06 08:00] VITALS: BP 103/70
[2021-12-06] MEDS: nicotine 21mg patch - 24 hr TD SCH (08:00)
[2021-12-06] MEDS: asenapine 5mg TAB.SUBL SL SCH ×2 (08:30→20:20)
[2021-12-06] MEDS: buprenorphine/naloxone 8MG-2MG SUBlingual film SL SCH ×3 (08:30→20:21)
[2021-12-06] MEDS: ketoconazole 2% cream 15gm TP SCH ×2 (08:32→20:00)
[2021-12-06] MEDS: NICOTINE POLACRILEX 2 MG LOZENGE BC PRN ×5 (08:35→20:22)
--- NOTE | 2021-12-06 15:03 | NUR ---
Nursing Progress Note Problem: Patient is unable to provide food, clothing and mcc. Pt is confused and disorganized at times and endorses A/V hallucinations. Pt has History of Schizophrenia. Intervention: Medication given as ordered. Provided with a safe and therapeutic environment, clear communication, active listening and positive encouragement. Response: Received Pt in bed sleeping w/o distress at the beginning of this shift. Pt woke and cooperative with vitals and AM meds. Pt ate meals well. Pt is guarded and isolative, spending most of the day resting in his room. Pt continues to endorse A/VHs. He appears to be less tormented by them since admission. Pt reported not hearing about rehab plans after discharge yet. He spoke with Dr Watt and engaged well. Pt anxious r/t future and AHs. Plan: Patient continues to require crisis interruption and stabilization with medication management and monitoring in a safe and therapeutic environment.
[2021-12-06] MEDS: hydrOXYzine 25 MG tablet PO PRN (16:22)
[2021-12-06 19:41] VITALS: BP 103/70
[2021-12-06] MEDS: traZODone 50mg tablet PO PRN (20:19)
[2021-12-06] MEDS: OLANZAPINE 5 MG TABLET PO SCH (20:19)
--- NOTE | 2021-12-07 04:28 | NUR ---
Nursing Progress Note Problem: Patient is unable to provide food, clothing and usp. Pt is confused and disorganized at times and endorses A/V hallucinations. Pt has History of Schizophrenia. Intervention: Medication given as ordered. Provided with a safe and therapeutic environment, clear communication, active listening and positive encouragement. Response: Patient was found sitting in community room watching tv at change of shift. Patient asked for anxiety medication which he did not have available. Patient then asked for a shower which he took before going to snack. Patient asked for scheduled night meds including trazodone and nicotine lozenge. Patient asked for multiple sacks before going to bed. Plan: Patient continues to require crisis interruption and stabilization with medication management and monitoring in a safe and therapeutic environment.
[2021-12-07 07:10] VITALS: BP 99/65
[2021-12-07] MEDS: asenapine 5mg TAB.SUBL SL SCH ×2 (07:57→20:15)
[2021-12-07] MEDS: buprenorphine/naloxone 8MG-2MG SUBlingual film SL SCH ×3 (07:58→20:15)
[2021-12-07] MEDS: NICOTINE POLACRILEX 2 MG LOZENGE BC PRN ×4 (07:59→18:29)
[2021-12-07] MEDS: nicotine 21mg patch - 24 hr TD SCH (07:59)
[2021-12-07] MEDS: ketoconazole 2% cream 15gm TP SCH ×2 (08:00→20:00)
[2021-12-07] MEDS: hydrOXYzine 25 MG tablet PO PRN (14:20)
[2021-12-07] MEDS: OLANZAPINE 5 MG TABLET PO PRN (16:01)
--- NOTE | 2021-12-07 18:05 | NUR ---
Nursing Progress Note Problem: Patient is unable to provide food, clothing and group home. Pt is confused and disorganized at times and endorses A/V hallucinations. Pt has History of Schizophrenia. Intervention: Medication given as ordered. Provided with a safe and therapeutic environment, clear communication, active listening and positive encouragement. Response: Pt. asleep at start of shift. Pt. awoke for breakfast and took all medications. Pt. ate all meals in community room. 1:1 done in nurses station. Pt. denies SI/HI, AH. However, pt. reports VH. When asked what he sees, pt. states, A lot of things. Pt. isolated to his room most of the AM. In the afternoon pt. observed pacing frequently and c/o anxiety and received Atarax 75mg with minimal effect. An hour later pt. given Zyprexa 10mg po with good effect. Pt. perseverates on asking if he will be discharged. Plan: Patient continues to require crisis interruption and stabilization with medication management and monitoring in a safe and therapeutic environment.
[2021-12-07 19:41] VITALS: BP 92/54
[2021-12-07] MEDS: traZODone 50mg tablet PO PRN (20:15)
--- NOTE | 2021-12-08 03:49 | NUR ---
Nursing Progress Note Problem: Patient is unable to provide food, clothing and intermediate. Pt is confused and disorganized at times and endorses A/V hallucinations. Pt has History of Schizophrenia. Intervention: Medication given as ordered. Provided with a safe and therapeutic environment, clear communication, active listening and positive encouragement. Response: Patient found sitting in hallway asking for nicotine lozenge at change of shift. Patient returns to community room after receiving lozenge. Patient stays in community until after snack time. Patient take all night medications without issue including another lozenge. Patient continues to get up three times through out the night to ask for snacks. Plan: Patient continues to require crisis interruption and stabilization with medication management and monitoring in a safe and therapeutic environment.
[2021-12-08 08:00] VITALS: BP 101/60
[2021-12-08] MEDS: buprenorphine/naloxone 8MG-2MG SUBlingual film SL SCH ×3 (08:20→20:04)
[2021-12-08] MEDS: nicotine 21mg patch - 24 hr TD SCH (08:21)
[2021-12-08] MEDS: asenapine 5mg TAB.SUBL SL SCH ×2 (08:23→20:04)
[2021-12-08] MEDS: ketoconazole 2% cream 15gm TP SCH ×2 (08:51→20:00)
[2021-12-08] MEDS: NICOTINE POLACRILEX 2 MG LOZENGE BC PRN ×3 (12:01→20:04)
--- NOTE | 2021-12-08 16:07 | NUR ---
Nursing Progress Note: Gurpreet Problem: Patient is unable to provide food, clothing and [facility]. Pt is confused and disorganized at times and endorses A/V hallucinations. Pt has History of Schizophrenia. Intervention: Curriculum Developer continues to provide pt. with a safe and therapeutic environment, clear communication, active listening and positive encouragement. Pt. encouraged to participate on unit and in group therapy, and 1:1 assessment provided with medication administration. Q15min checks continue for pt. safety. Response: Pt. denies SI, HI, A/VH but is guarded with what he says to this copywriter. Pt. reports [facility] got some where to go , just worried about rent Pt. presents with increased fatigue today previous sleep hours report 6 last night. He takes his meds without hesitancy, ate all his meals in the main dining room with cohorts, but keeps to himself and is not observed socializing with cohorts. Most often he eats in a chair with his tray on his lap. Pt. spent more time in his room today then this copywriter has previously noticed. He has long black hair, fair hygiene and is wearing unit scrubs Plan: Patient continues to require crisis interruption and stabilization with medication management and monitoring in a safe and therapeutic environment.
[2021-12-08] MEDS: hydrOXYzine 25 MG tablet PO PRN (16:21)
[2021-12-08 20:00] VITALS: BP 116/73
[2021-12-08] MEDS: traZODone 50mg tablet PO PRN ×2 (20:06→22:21)
[2021-12-08] MEDS: OLANZAPINE 5 MG TABLET PO PRN (22:21)
--- NOTE | 2021-12-09 04:10 | NUR ---
Nursing Progress Note: Gurpreet Problem: Patient is unable to provide food, clothing and assisted. Pt is confused and disorganized at times and endorses A/V hallucinations. Pt has History of Schizophrenia. Intervention: Provide pt. with a safe and therapeutic environment, clear communication, active listening and positive encouragement. Pt. encouraged to participate on unit and in group therapy, and 1:1 assessment provided with medication administration. Q15min checks continue for pt. safety. Response: Patient was observed sitting in chair in front of rec room at beginning of shift. Patient paced back and forth between his room and community room. Patient asked for nicotine lozenge along with night medications. Patient continued to get up during the night asking for snacks complaining of hunger due to night medications. Patient continued to ask when he was being discharged and what time. Plan: Patient continues to require crisis interruption and stabilization with medication management and monitoring in a safe and therapeutic environment.
[2021-12-09 07:05] VITALS: BP 91/62
[2021-12-09] MEDS: ketoconazole 2% cream 15gm TP SCH ×2 (08:00→08:11)
[2021-12-09] MEDS: nicotine 21mg patch - 24 hr TD SCH ×2 (08:00→08:11)
[2021-12-09] MEDS: NICOTINE POLACRILEX 2 MG LOZENGE BC PRN (08:10)
[2021-12-09] MEDS: buprenorphine/naloxone 8MG-2MG SUBlingual film SL SCH (08:10)
[2021-12-09] MEDS: asenapine 5mg TAB.SUBL SL SCH (08:10)
[2021-12-09] MEDS ORDERED: BUPR1FIL3 SL ×3 (08:36→08:39)
[2021-12-09] MEDS ORDERED: HYDR-3686 PO (08:36)
[2021-12-09] MEDS ORDERED: NICO-687 TD (08:36)
[2021-12-09] MEDS ORDERED: ASEN5TAB10 SL (08:36)
[2021-12-09] MEDS ORDERED: TRAZ-251 PO (08:36)
--- NOTE | 2021-12-09 11:56 | NUR ---
DISCHARGE NOTE Pt discharged at 1130. Reviewed discharge instructions with patient and he verbalizes understanding. Pt demonstrates readiness for discharge. Belongings returned to patient, including home medications. Picked up by [facility] cdl company driver and transported to his [facility] residence.
== END 2021-12-09 11:30 | disposition home or self-care (01) | DRG 750 ==
LOC: ER 18:26 → UNDOADMIN 11-22 19:59 → ADULT MH 11-22 19:59 → ED HOLD 11-22 19:59 → ADULT MH 11-22 20:00
PROVIDERS: ADMIT Psychiatry & Neurology Psychiatry; ATTEND Psychiatry & Neurology Psychiatry
DX: F20.9 Schizophrenia, unspecified (principal); R45.851 Suicidal ideations; Z91.19 Patient's noncompliance with other medical treatment and regimen; F11.21 Opioid dependence, in remission; Z20.822 Contact with and (suspected) exposure to COVID-19; F15.21 Other stimulant dependence, in remission; F17.210 Nicotine dependence, cigarettes, uncomplicated; Z59.00 Homelessness unspecified; B19.20 Unspecified viral hepatitis C without hepatic coma
CPT/HCPCS: 36415; 80053; 80061; 80305; 80320; 81001; 83036; 85025; 87081; 87811; 99285; Q0163; Q0177

== ENCOUNTER 2021-12-11 02:45 | Emergency (ER) | payer MEDICAID ==
[~2021-12-11] VITALS: Ht 177.8 cm; Wt 81.8 kg
[~2021-12-11 02:45] MED LIST changes: +ASEN5TAB10 SL; +BUPR1FIL3 SL; -DIVA-76 PO; -DIVA500T39 PO; +HYDR-3686 PO; +NICO-687 TD; -PROM12.512 PO; +TRAZ-251 PO
[2021-12-11 02:55] VITALS: BP 115/82
[2021-12-11] MEDS ORDERED: BUPR1FIL3 SL (16:23)
== END 2021-12-11 03:27 | disposition home or self-care (01) ==
LOC: ER 02:45
DX: F29 Unspecified psychosis not due to a substance or known physiological condition (principal); F15.20 Other stimulant dependence, uncomplicated; F11.90 Opioid use, unspecified, uncomplicated; Z59.00 Homelessness unspecified
CPT/HCPCS: 99281

== ENCOUNTER 2021-12-22 09:51 | Emergency (ER) | payer MEDICAID ==
[~2021-12-22] VITALS: Ht 177.8 cm; Wt 83.2 kg
[2021-12-22 10:20] VITALS: BP 98/63
== END 2021-12-22 12:26 | disposition home or self-care (01) ==
LOC: ER 09:52
DX: Z00.00 Encounter for general adult medical examination without abnormal findings (principal); F12.90 Cannabis use, unspecified, uncomplicated; F15.20 Other stimulant dependence, uncomplicated; F11.90 Opioid use, unspecified, uncomplicated; Z59.00 Homelessness unspecified
CPT/HCPCS: 99281

== ENCOUNTER 2023-07-29 12:36 | Emergency (ER) | payer MEDICAID ==
[~2023-07-29] VITALS: Ht 177.8 cm; Wt 90.0 kg
[2023-07-29 12:52] VITALS: BP 97/62; PULSE 74; RESP 16; TEMP 98; O2SAT 97
== END 2023-07-29 15:53 | disposition home or self-care (01) ==
LOC: ER 12:37
DX: S60.011A Contusion of right thumb without damage to nail, initial encounter (principal); M79.644 Pain in right finger(s); F12.90 Cannabis use, unspecified, uncomplicated; F15.90 Other stimulant use, unspecified, uncomplicated; F11.90 Opioid use, unspecified, uncomplicated; Z59.00 Homelessness unspecified; Z72.89 Other problems related to lifestyle; Z79.899 Other long term (current) drug therapy; W22.8XXA Striking against or struck by other objects, initial encounter; Y93.89 Activity, other specified; Y92.89 Other specified places as the place of occurrence of the external cause; Y99.8 Other external cause status
CPT/HCPCS: 73140; 99283